=== PATIENT | male | born 1970 | race Two or more races ===

== ENCOUNTER 2016-07-10 18:45 | Emergency (ER) | payer OTHER ==
[~2016-07-10] VITALS: Ht 167.6 cm; Wt 117.9 kg
[2016-07-10 18:48] VITALS: BP 137/85
--- NOTE | 2016-07-10 19:06 | NUR ---
WOUND CARE PROVIDED. PT IS MEDICALLY CLEARED FOR BOOKING. D/C TO PD IN STABLE CONDITION.
== END 2016-07-10 19:10 | disposition home or self-care (01) ==
LOC: ER 18:46
DX: Z02.89 Encounter for other administrative examinations (principal); S61.214A Laceration without foreign body of right ring finger without damage to nail, initial encounter; W45.8XXA Other foreign body or object entering through skin, initial encounter; Y93.89 Activity, other specified; Y92.89 Other specified places as the place of occurrence of the external cause; Y99.8 Other external cause status
CPT/HCPCS: 99283; A4606; Z7610